=== PATIENT | male | born 1970 | race Caucasian/White ===

== ENCOUNTER → 2016-08-13 | Outpatient (CLI) | payer BC ==
[~2016-08-13] MED LIST: FLECAINIDE PO; NEXIUM PO
== END ==
LOC: BHSO 08:14
DX: F33.41 Major depressive disorder, recurrent, in partial remission (principal)

== ENCOUNTER → 2016-10-01 | Outpatient (CLI) | payer BC | LOC: BHSO 07:57 | DX: F33.42 Major depressive disorder, recurrent, in full remission (principal) ==

== ENCOUNTER → 2016-12-03 | Outpatient (CLI) | payer BC | LOC: BHSO 08:00 | DX: F33.42 Major depressive disorder, recurrent, in full remission (principal) ==

== ENCOUNTER → 2017-03-16 | Outpatient (CLI) | payer BC | LOC: BHSO 08:08 | DX: F33.41 Major depressive disorder, recurrent, in partial remission (principal) ==

== ENCOUNTER → 2017-06-16 | Outpatient (CLI) | payer BC | LOC: BHSO 07:51 | DX: F33.41 Major depressive disorder, recurrent, in partial remission (principal) ==

== ENCOUNTER → 2017-09-16 | Outpatient (CLI) | payer BC | LOC: BHSO 07:59 | DX: F33.42 Major depressive disorder, recurrent, in full remission (principal) | CPT/HCPCS: G0463 ==

== ENCOUNTER → 2017-12-18 | Outpatient (CLI) | payer BC | LOC: BHSO 08:00 | DX: F33.42 Major depressive disorder, recurrent, in full remission (principal) | CPT/HCPCS: G0463 ==

== ENCOUNTER → 2018-01-22 | Outpatient (CLI) | payer BC | LOC: COL.CARD 07:37 | DX: R55 Syncope and collapse (principal) ==

== ENCOUNTER → 2018-03-19 | Outpatient (CLI) | payer BC | LOC: BHSO 07:53 | DX: F33.41 Major depressive disorder, recurrent, in partial remission (principal) | CPT/HCPCS: G0463 ==

== ENCOUNTER → 2018-05-05 | Outpatient (CLI) | payer BC | LOC: BHSO 08:06 | DX: F33.41 Major depressive disorder, recurrent, in partial remission (principal) | CPT/HCPCS: G0463 ==

== ENCOUNTER → 2018-08-11 | Outpatient (CLI) | payer BC | LOC: BHSO 08:18 | DX: F33.42 Major depressive disorder, recurrent, in full remission (principal) | CPT/HCPCS: G0463 ==

== ENCOUNTER → 2019-02-09 | Outpatient (CLI) | payer BC | LOC: BHSO 07:53 | DX: F41.1 Generalized anxiety disorder (principal) | CPT/HCPCS: G0463 ==

== ENCOUNTER 2019-04-11 08:26 | Day surgery (SDC) | payer BC ==
[~2019-04-11] VITALS: Ht 183 cm; Wt 95.2 kg
[2019-04-11] VITALS (12 sets, daily range): BP systolic 93–109; BP diastolic 57–77; PULSE 57–69; TEMP 98.1
[2019-04-11] MEDS ORDERED: TAMBOCOR 1100 MG/TAB PO (09:16)
[2019-04-11] MEDS ORDERED: TRILIPIX45 MG PO (09:16)
[2019-04-11 09:17] LABS: HEMATOCRIT 43.1 % (42.0-52.0); HEMOGLOBIN 14.5 g/dl (13.5-18.0); MEAN CELL VOLUME 90 fl (80.0-100.0); MEAN CORPUSCULAR HEMOGLOBIN 30 pg (27.0-31.0); MEAN CORPUSCULAR HGB CONC 34 g/dl (33.0-37.0); MEAN PLATELET VOLUME 9.5 fl (7.4-10.4); PLATELET COUNT 243 K/mm3 (130-400); RED BLOOD COUNT 4.77 M/mm3 (4.20-5.60); REDCELL DISTRIBUTION WIDTH-CV 12.7 % (11.5-14.5)
[2019-04-11] MEDS ORDERED: TOPROL XL 25MG25 MG PO (09:17)
[2019-04-11] MEDS ORDERED: ATIVAN 1MG T1 MG/TAB PO (09:17)
[2019-04-11] MEDS ORDERED: BRINTELLIX10 (09:18)
[2019-04-11 09:26] LABS: INR 0.9 (0.8-3.0)
[2019-04-11 09:30] LABS: CALCIUM 9.6 mg/dL (8.4-10.2); CREATININE, serum 1.37 (0.66-1.25); POTASSIUM 4.1 mmol/L (3.4-5.0)
--- NOTE | 2019-04-11 10:21 | NUR ---
ALL MEDICATIONS GIVEN VORB WITH MD. SEE MERGE FOR ALL MEDICATION ADMIN TIMES. SEE MERGE FOR ALL RASS ASSESSMENTS DURING AND POST PROCEDURE.
--- NOTE | 2019-04-11 11:15 | NUR ---
PT TO EU 11 VIA BED FROM [employer]. PT IS AWAKE AND ALERT, AT BEDSIDE, CALL LIGHT IN REACH. PT INSTRUCTED ON ACTIVITY OF BEDREST AND KEEPING RIGHT LEG STRAIGHT, REQUESTED JUICE AT THIS TIME.
--- NOTE | 2019-04-11 11:20 | NUR ---
Patient transported back to room 11 at this time. Patient hooked back up to monitoring equipment. VS stable. Patient denies any pain at this time. Prema Baker, RN at bedside. Visualized right femoral site with RN. Dressing is clean, dry, and intact. No oozing or hematoma noted at this time. Site is soft and nontender. Pedal pulses present, at baseline. Discussed importance of flat time and keeping leg straight and head down on pillow with patient and spouse. Bed in locked and lowest position, call light within reach.
[2019-04-11] MEDS ORDERED: ASPIRIN E.C. 8181 MG PO (11:29)
--- NOTE | 2019-04-11 12:00 | NUR ---
PT CON'T TO REST IN BED, MARÍA, IN ROOM
--- NOTE | 2019-04-11 13:30 | NUR ---
CON'T SAME, DECLINES FOOD AT THIS TIME, NO CHANGES IN ASSESSMENT
--- NOTE | 2019-04-11 14:27 | NUR ---
reviewed discharge inst. with pt and , on activity, new Rx, precautions and site care with verbal understanding.
--- NOTE | 2019-04-11 15:10 | NUR ---
PT SAT ON SIDE OF BED, TOLERATED WELL. WALKED IN BURT, DECLINED USING B/R. SITE IS UNCHANGED. PT UP IN ROOM DRESSED, IV D'CD INTACT.
--- NOTE | 2019-04-11 15:30 | NUR ---
PT DISCHARGED VIA W/C TO CAR WITH
== END 2019-04-11 15:35 | disposition home or self-care (01) ==
LOC: COL.CAR 08:26
PROVIDERS: Internal Medicine Cardiovascular Disease
DX: R94.39 Abnormal result of other cardiovascular function study (principal); I47.2 Ventricular tachycardia; I34.1 Nonrheumatic mitral (valve) prolapse
CPT/HCPCS: J1644; J2250; J3010; Q9967

== ENCOUNTER → 2019-08-12 | Outpatient (CLI) | payer BC ==
[~2019-08-12] MED LIST changes: +ASPIRIN E.C. 8181 MG PO; +ATIVAN 1MG T1 MG/TAB PO; +BRINTELLIX10; +TAMBOCOR 1100 MG/TAB PO; +TOPROL XL 25MG25 MG PO; +TRILIPIX45 MG PO
== END ==
LOC: BHSO 07:54
DX: F33.41 Major depressive disorder, recurrent, in partial remission (principal)
CPT/HCPCS: G0463

== ENCOUNTER → 2020-02-21 | Outpatient (CLI) | payer BC | LOC: BHSO 07:58 | DX: F33.41 Major depressive disorder, recurrent, in partial remission (principal) | CPT/HCPCS: G0463 ==

== ENCOUNTER → 2020-04-17 | Outpatient (CLI) | payer BC | LOC: BHSO 07:54 | DX: F33.41 Major depressive disorder, recurrent, in partial remission (principal) | CPT/HCPCS: G0463 ==

== ENCOUNTER → 2020-05-31 | Outpatient (CLI) | payer BC | LOC: BHSO 07:56 | DX: F33.41 Major depressive disorder, recurrent, in partial remission (principal) | CPT/HCPCS: G0463 ==

== ENCOUNTER 2022-05-30 10:40 | Emergency (ER) | payer BC ==
[~2022-05-30] VITALS: Ht 185.4 cm; Wt 97.7 kg
[2022-05-30 10:50] VITALS: BP 128/75
[2022-05-30 11:34] LABS: BASO # 0.1 K/mm3 (0.0-0.2); BASO % 0.7 % (0.0-2.0); EOS # 0.3 K/mm3 (0.0-0.7); EOS % 3.7 % (0.0-4.0); GRAN % 71.5 % (42.2-75.2); HEMATOCRIT 44.2 % (42.0-52.0); HEMOGLOBIN 14.6 g/dl (13.5-18.0); LYMPH # 1.2 K/mm3 (1.2-3.4); LYMPH % 16.3 % (20.0-51.0); MEAN CELL VOLUME 92 fl (80.0-100.0); MEAN CORPUSCULAR HEMOGLOBIN 30 pg (27-31); MEAN CORPUSCULAR HGB CONC 33 g/dl (33.0-37.0); MEAN PLATELET VOLUME 9.3 fl (7.4-10.4); MONO # 0.5 K/mm3 (0.1-0.6); MONO % 7.7 % (1.7-9.3); PLATELET COUNT 308 K/mm3 (130-400); RED BLOOD COUNT 4.83 M/mm3 (4.20-5.60); REDCELL DISTRIBUTION WIDTH-CV 12.6 % (11.5-14.5)
[2022-05-30 11:46] LABS: ALBUMIN 4.5 gm/dL (3.5-5.0); BILIRUBIN,TOTAL 0.5 mg/dL (0.2-1.2); CALCIUM 9.8 mg/dL (8.4-10.2); CREATININE, serum 1.5 mg/dL (0.72-1.25); POTASSIUM 4.2 mmol/L (3.5-4.5); TOTAL PROTEIN 7.5 gm/dL (6.2-8.1)
[2022-05-30 13:44] LABS: COLLECTION METHOD CLEAN CATCH
[2022-05-30 13:56] LABS: MUCOUS Present (NOT PRESENT); SQUAMOUS EPITHELIAL 0-2 /hpf (0-10); URINE APPEARANCE Clear (CLEAR/HAZY); URINE BACTERIA None Seen /hpf (NONE SEEN); URINE COLOR Yellow (YELLOW); URINE RBC >50 /hpf (0-2)
[2022-05-30 13:57] LABS: URINE BLOOD 3+ (NEGATIVE); URINE GLUCOSE Negative (NEGATIVE); URINE KETONE Negative (NEGATIVE); URINE NITRATE Negative (NEGATIVE); URINE PROTEIN(semi-quant) Negative (NEGATIVE)
[2022-05-30] MEDS ORDERED: NORCO 325 MG-51 TAB PO (13:57)
[2022-05-30 14:00] VITALS: PULSE 70
== END 2022-05-30 14:06 | disposition home or self-care (01) ==
LOC: COL.ER 10:40
PROVIDERS: Nurse Practitioner Family
DX: N20.0 Calculus of kidney (principal); N21.0 Calculus in bladder; K57.30 Diverticulosis of large intestine without perforation or abscess without bleeding; Z87.891 Personal history of nicotine dependence; Z90.49 Acquired absence of other specified parts of digestive tract
CPT/HCPCS: J1885; J2405; J7120; Q9967